=== PATIENT | male | born 1960 | race Caucasian/White ===

== ENCOUNTER 2022-11-20 18:20 | Emergency (ER) | payer MEDICAID ==
[2022-11-20 19:17] VITALS: RESP 18; TEMP 98
--- NOTE | 2022-11-20 23:13 | ERPHSYRPT ---
- History of Present Illness Time Seen by Provider: 11/20/22 23:07 Source: patient, family Exam Limitations: no limitations Patient Subjective Stated Complaint: C/O swelling to end of penis that started yesterday Triage Nursing Assessment: Patient ambulated back to ER without any difficulties. He is alert and oriented. Skin tone normal. Patient noted to be uncircumsized. Foreskin unable to be placed normally due to swelling to left side of penis shaft. Patient denies pain or itching. No rashes or "bites" noted at this time. Physician History: pt thinks he may have been bitten by a bug and is allergic to beestings. No shortness of breath or dif swallowing or dizziness. chest is clear without wheezes or stridor and swallowing OK in ER. This happend on penis and has swelling at foreskin but is retractable and has no pain and is able to urinate freely. Hx confirmed with family as independent sources discussed risks/benefits of steroid tx and benadrylk and pt wishes to proceed - pt also advised that reaction could progress quickly and he is aware and wishes this tx as outpt rather than further obs tx in hosp and has the [facility] make this choice. Timing/Duration: yesterday Activites at Onset: none Onset Location: other (penis) Pain Radiation: none Severity of Pain-Max: moderate Severity of Pain-Current: moderate Modifying Factors: Improves With: nothing Associated Symptoms: denies symptoms, No dysuria, No urinary frequency, No lower back pain Prior abdominal problems: none Sexual intercourse history: non-contributory Allergies/Adverse Reactions: Penicillins Allergy (Verified 11/20/22 18:52) Home Medications: Clopidogrel Bisulfate [Plavix] 1 tab PO DAILY 11/20/22 [History] Diltiazem HCl [Cardizem Cd] 1 tab PO DAILY 11/20/22 [History] Fluticasone Propion/Salmeterol [Fluticasone-Salmeterol 250-50] 1 puff PO BID 11/20/22 [History] Furosemide 20 mg [Lasix 20 mg] 1 tab PO DAILY 11/20/22 [History] Insulin Glargine [Lantus Insulin] 35 units SQ DAILY 11/20/22 [History] Isosorbide Mononitrate [Isosorbide Mononitrate ER] 1 tab PO BID 11/20/22 [History] Lisinopril 10 mg [Zestril 10 MG] 1 tab PO DAILY 11/20/22 [History] Magnesium Oxide 400 mg [Mag-Ox 400] 1 tab PO DAILY 11/20/22 [History] Metoprolol Succinate 50 mg [Toprol Xl 50 MG] 150 mg PO BID 11/20/22 [History] Rivaroxaban [Xarelto] 1 tab PO DAILY 11/20/22 [History] Tiotropium [place] [Spiriva Handihaler] 1 puff PO DAILY 11/20/22 [History] Hx Tetanus, Diphtheria Vaccination/Date Given: Yes Hx Influenza Vaccination/Date Given: No Hx Pneumococcal Vaccination/Date Given: No Immunizations Up to Date: Yes Travel Risk - International Travel Have you traveled outside of the country in past 3 weeks: No - Coronavirus Screening Are you exhibiting any of the following symptoms?: No Close contact with a COVID-19 positive Pt in past 14-21 Days: No - Vaccine Status Have you recieved a Covid-19 vaccination: Yes Pick Up: Dash - Past Medical History Pertinent Past Medical History: Yes Cardiac History: Coronary Artery Disease, High Cholesterol, Hypertension, Myocardial Infarction ([place]) Respiratory History: COPD Musculoskeletal History: Fractures GI Medical History: Hernia - Past Surgical History Past Surgical History: Yes Cardiac: Cardiac Catheterization, Cardiac Stent Gastrointestinal: Hernia Repair Musculoskeletal: Orthopedic Surgery Other Surgical History: stent in kidney - Social History Smoking Status: Former smoker Exposure to second hand smoke: No Drug Use: none Patient Lives Alone: No - Review of Systems Constitutional: No Fever, No Chills Eyes: No Symptoms Ears, Nose, & Throat: No Symptoms Respiratory: No Cough, No Dyspnea Cardiac: No Chest Pain, No Edema, No Syncope Abdominal/Gastrointestinal: No Abdominal Pain, No Nausea, No Vomiting, No Diarrhea Genitourinary Symptoms: Other (penile foreskin swelling), No Dysuria Musculoskeletal: No Back Pain, No Neck Pain Skin: No Rash Neurological: No Symptoms, No Dizziness, No Focal Weakness, No Sensory Changes Psychological: No Symptoms Endocrine: No Symptoms All Other Systems: Reviewed and Negative - Nursing Vital Signs Nursing Vital Signs: Initial Vital Signs Temperature 98 F 11/20/22 18:21 Pulse Rate 90 11/20/22 18:21 Respiratory Rate 18 11/20/22 18:21 Blood Pressure 143/71 11/20/22 18:21 O2 Sat by Pulse Oximetry 97 11/20/22 18:21 Pain Scale Pain Intensity 0 - Physical Exam General Appearance: no apparent distress, alert Eye Exam: PERRL/EOMI Ears, Nose, Throat Exam: pharynx normal, moist mucous membranes Neck Exam: normal inspection, supple Respiratory Exam: normal breath sounds, lungs clear Cardiovascular Exam: regular rate/rhythm, No edema Gastrointestinal/Abdomen Exam: soft, No tenderness Rectal Exam: deferred Male Genital Exam: normal genitalia (swollen foreskin - retractable without pain) Back Exam: normal inspection, No CVA tenderness Extremity Exam: normal inspection, normal range of motion, No pedal edema Neurologic Exam: alert, oriented x 3, cooperative, sensation nml, No motor deficits Skin Exam: normal color, warm, dry, No rash SpO2: 95 - Course Nursing assessment & vital signs reviewed: Yes - Progress Progress: improved, re-examined Counseled pt/family regarding: diagnosis, need for follow-up Medical Desision Making - Independent Historian Additional History obtained from: Family - Diagnostic Testing Diagnostic test were ordered, analyzed, and reviewed by me: No - Risk of complications The pt has a mod risk of morbidity or mortality based on: Need for prescription drug management - Departure Departure Disposition: Home Clinical Impression: localized allergic skin rxn penis Condition: Good Critical Care Time: No Referrals: GHAZAL OSMAN MD [Primary Care Provider] - Follow up/PCP as directed Additional Instructions: followup with your this week to confirm progress. return meantime if not improving or if any shortness of breath or difficulty swallowing or trouble urinating. you can take benadryl at home and also use ice Prescriptions: Methylprednisolone Packet [Medrol Dosepack] 4 mg PO UD #30 packet
[2022-11-20] MEDS ORDERED: DELTASONE 20 MG PO ONE (23:25)
[2022-11-20] MEDS ORDERED: DELTASONE 20 MG ONE (23:27)
[2022-11-20 23:43] VITALS: BP 122/74; PULSE 70; O2SAT 94
== END 2022-11-20 23:50 | disposition home or self-care (01) ==
LOC: ED 18:20
DX: T78.40XA Allergy, unspecified, initial encounter (principal); R22.9 Localized swelling, mass and lump, unspecified; E78.5 Hyperlipidemia, unspecified; I10 Essential (primary) hypertension; Z79.02 Long term (current) use of antithrombotics/antiplatelets; Z79.4 Long term (current) use of insulin; Z79.01 Long term (current) use of anticoagulants; Z79.899 Other long term (current) drug therapy; Z79.52 Long term (current) use of systemic steroids
CPT/HCPCS: 99283; A9270-GY

== ENCOUNTER 2024-01-20 11:34 | Emergency (ER) | payer MEDICARE ==
--- NOTE | 2024-01-20 12:10 | ERPHSYRPT ---
- History of Present Illness Time Seen by Provider: 01/20/24 12:06 Historian: patient, family Exam Limitations: no limitations Patient Subjective Stated Complaint: pt here for hes chronic abd pain, he has a artery occlusion.no vomiting or fever noted. Triage Nursing Assessment: pt alert, walked in with a cane, resp easy, skin w/d/p. abd soft, tender to touch, moves all ext well, has edema not lower legs he states is normal Physician History: Patient is 63-year-old male with significant past medical history of coronary artery disease for which patient has a 2 stent placed in 3 weeks ago also patient has a history of renal artery stenosis for which patient has also stent placed in, patient is also diabetic with last hemoglobin A1c was 10.2 and patient has recently found out about having a mesenteric artery occlusive disease for which patient required a stent placement but because of patient high hemoglobin A1c and uncontrolled diabetes it has been put on hold because of risk of renal failure. Patient states that he has a chronic abdominal pain due to mesenteric artery occlusive disease for last few months his pain is mainly in the right lower quadrant as well as left lower quadrant and periumbilical area. He denies any nausea vomiting diarrhea constipation blood in the stool or urine. He also denies any chest pain shortness of breath headache blurred vision back pain. Timing/Duration: week(s) Activities at Onset: none Quality: aching, sharpness, stabbing Abdominal Pain Onset Location: RLQ, LLQ, periumbilical Pain Radiation: no radiation Severity of Pain-Max: moderate Severity of Pain-Current: moderate Modifying Factors: Improves With: nothing Associated Symptoms: denies symptoms Previous symptoms: same symptoms as today Allergies/Adverse Reactions: Penicillins Allergy (Verified 01/20/24 11:49) Home Medications: Clopidogrel Bisulfate [Plavix] 1 tab PO DAILY 11/20/22 [History] Fluticasone Propion/Salmeterol [Fluticasone-Salmeterol 250-50] 1 puff PO BID 11/20/22 [History] Furosemide 20 mg [Lasix 20 mg] 1 tab PO DAILY 11/20/22 [History] Insulin Glargine [Lantus Insulin] 35 units SQ DAILY 11/20/22 [History] Isosorbide Mononitrate [Isosorbide Mononitrate ER] 1 tab PO BID 11/20/22 [History] Lisinopril 10 mg [Zestril 10 MG] 1 tab PO DAILY 11/20/22 [History] Magnesium Oxide 400 mg [Mag-Ox 400] 1 tab PO DAILY 11/20/22 [History] Metoprolol Succinate 50 mg [Toprol Xl 50 MG] 150 mg PO BID 11/20/22 [History] Rivaroxaban [Xarelto] 1 tab PO DAILY 11/20/22 [History] Tiotropium Pipestem [Spiriva Handihaler] 1 puff PO DAILY 11/20/22 [History] dilTIAZem HCL [Cardizem Cd] 1 tab PO DAILY 11/20/22 [History] Hx Tetanus, Diphtheria Vaccination/Date Given: Yes Hx Influenza Vaccination/Date Given: No Hx Pneumococcal Vaccination/Date Given: Yes (2022) Immunizations Up to Date: Yes Travel Risk - International Travel Have you traveled outside of the country in past 3 weeks: No - Emerging Infectious Disease Are you exhibiting symptoms associated with any current EIDs: No - Review of Systems Constitutional: No Fever, No Chills Eyes: No Symptoms Ears, Nose, & Throat: No Symptoms Respiratory: No Cough, No Dyspnea Cardiac: No Chest Pain, No Edema, No Syncope Abdominal/Gastrointestinal: Abdominal Pain, No Nausea, No Vomiting, No Diarrhea Genitourinary Symptoms: No Dysuria Musculoskeletal: No Back Pain, No Neck Pain Skin: No Rash Neurological: No Dizziness, No Focal Weakness, No Sensory Changes Psychological: No Symptoms Endocrine: No Symptoms All Other Systems: Reviewed and Negative - Past Medical History Pertinent Past Medical History: Yes Cardiac History: Coronary Artery Disease, High Cholesterol, Hypertension, Myocardial Infarction ([place]) Respiratory History: COPD Endocrine Medical History: Diabetes Type II Musculoskeletal History: Fractures GI Medical History: Hernia - Past Surgical History Past Surgical History: Yes Cardiac: Cardiac Catheterization, Cardiac Stent Gastrointestinal: Hernia Repair Musculoskeletal: Orthopedic Surgery Other Surgical History: stent in kidney - Social History Smoking Status: Former smoker Exposure to second hand smoke: No Drug Use: none Patient Lives Alone: No - Social Determinants of Health Will the patient participate in the screening: Yes Do you worry about a steady place to live?: No Do you have any problems with any of the following?: No known problems In the past 12 months,have you had to go without utilities?: No Transportation Issues: No Has anyone in your support network made you feel unsafe?: No Have you or anyone in your house had to go without enough: No - Nursing Vital Signs Nursing Vital Signs: Initial Vital Signs Respiratory Rate 18 01/20/24 12:00 Blood Pressure 126/61 01/20/24 12:00 Pain Scale Pain Intensity 8 - Physical Exam General Appearance: no apparent distress, alert Eye Exam: PERRL/EOMI, eyes nml inspection Ears, Nose, Throat Exam: normal ENT inspection, pharynx normal, moist mucous membranes Neck Exam: normal inspection, non-tender, supple, full range of motion Respiratory Exam: normal breath sounds, lungs clear, No respiratory distress Cardiovascular Exam: regular rate/rhythm, normal heart sounds Gastrointestinal/Abdomen Exam: soft, tenderness (RLQ, LLQ. Periumbilical), No mass Back Exam: normal inspection, normal range of motion, No CVA tenderness, No vertebral tenderness Extremity Exam: normal inspection, normal range of motion, pelvis stable Neurologic Exam: alert, oriented x 3, cooperative, normal mood/affect, nml cerebellar function, sensation nml, No motor deficits Skin Exam: normal color, warm, dry - Course Nursing assessment & vital signs reviewed: Yes Ordered Tests: Medication Summary Discontinued Medications Generic Name Dose Route Start Last Admin Trade Name Walter PRN Reason Stop Dose Admin Fentanyl Citrate 50 mcg 01/20/24 12:06 01/20/24 12:23 Fentanyl Citrate 100 Mcg/2 Ml* Vial IM 01/20/24 12:07 50 mcg STAT ONE Administration Fentanyl Citrate Confirm 01/20/24 12:22 Fentanyl Citrate 100 Mcg/2 Ml* Vial Administered 01/20/24 12:23 Dose 100 mcg .ROUTE .Perficient-MED ONE - Progress Progress: improved, pain not gone completely Progress Note: 01/20/24 12:53 Patient has underwent extensive testing including CT abdomen and pelvis coronary angiogram renal angiogram for the workup of his abdominal pain which is chronic. At this point of time we are waiting for the all the test results which has been done in last 6 months from [facility]. According to that we will decide further if further testing is necessary for his chronic abdominal pain. 01/20/24 13:11 Patient's record from [facility] is reviewed patient has extensive peripheral vascular disease as well as extensive coronary artery disease with diabetes and superior mesenteric artery stenosis which is the reason for his chronic abdominal pain and for which patient is awaiting stent placement in the superior mesenteric artery. Due to patient uncontrolled diabetes and recent multiple exposure of intravenous dye and diabetes related disease with kidney patient is undergoing extensive and aggressive treatment to control his diabetes. I discussed with the patient about his problem and patient and his they both understand. Pain medication has been helping him I will send him home with some of the pain medication but it has a major side effects of constipation so they are advised to take some stool softener with this medicine. He is also advised to follow-up with his campaign coordinator and primary care physician in next 2 to 3 days. Counseled pt/family regarding: diagnosis, need for follow-up Medical Desision Making - Independent Historian Additional History obtained from: Spouse - Departure Departure Disposition: Home Clinical Impression: Superior mesenteric artery stenosis, Severe peripheral arterial disease, Chronic intestinal ischemic syndrome Abdominal pain Qualifiers: Abdominal location: lower abdomen, unspecified Qualified Code(s): R10.30 - Lower abdominal pain, unspecified Type 2 diabetes mellitus Qualifiers: Diabetes mellitus mcfp insulin use: with mcfp use Diabetes mellitus complication status: with circulatory complication Diabetes mellitus complication detail: with other circulatory complications Qualified Code(s): E11 .59 - Type 2 diabetes mellitus with other circulatory complications; Z79.4 - detention (current) use of insulin Condition: Stable Critical Care Time: No Referrals: GHAZAL OSMAN MD [Primary Care Provider] - Follow up/PCP as directed Instructions: Ischemic Bowel Disease ([place]) Additional Instructions: Discharge/Care Plan JIGNESH DANIELSON was seen on 01/20/24 in the Emergency Room. The patient was counseled regarding Diagnosis,Lab results, Imaging studies, need for follow up and when to return to the Emergency Room. Prescriptions given: Discharge Note I have spoken with the patient and/or caregivers. I have explained the patient's condition, diagnosis and treatment plan based on the information available to me at this time. I have answered the patient's and/or caregiver's questions and addressed any concerns. The patient and/or caregivers have as good understanding of the patient's diagnosis, condition and treatment plan as can be expected at this point. The vital signs have been stable. The patient's condition is stable and appropriate for discharge from the emergency department. The patient will pursue further outpatient evaluation with the primary care physician or other designated or consulting physician as outlined in the discharge instructions. The patient and/or caregivers are agreeable to this plan of care and follow-up instructions have been explained in detail. The patient and/or caregivers have received these instruction. The patient/and or caregivers are aware that any significant change in condition or worsening of symptoms should prompt an immediate return to this or the closest emergency department or call 911. JIGNESH DANIELSON was seen on 01/20/24 n the Emergency Room. At that time you were treated for an emergent condition, during your visit Laboratory, Radiology and/or other procedures may have been ordered. It is very important that you follow-up with your Primary Care Physician GHAZAL OSMAN MD within the next 24-48 hours to review your Emergency Room visit and the final results of testing that was ordered. Some test results such as Urine Cultures, Blood Cultures, and other cultures if ordered will not be finalized for 24-48 hours. If you do not have a Primary Care Provider please call the medical records department at [phone] ext [phone] to obtain a copy of your results or you may sign into our patient portal to obtain these results by visiting us @ [email or web address] and completing the following steps: 1. Click on the Patient Portal link 2. Click the Patient Self Enrollment Link to complete the enrollment form and entering your 3. Once the enrollment form is completed you will receive an email with a temporary ID and password at the email address you provided. 4. Next choose a user name and password. Your user name must be at least 4 characters long and your password must be at least 4 characters long. 5. Choose a security question from the list and provide your answer to the question. If you already have signed into the Health Portal you may access your Health Care Information 03/10 by the following steps: 1. Login to our website @ [email or web address] 2. Enter your original user name and password. FAQS The [facility] Health Portal is an online tool that contains your Lab Results, Radiology Reports, Visit History, Discharge Instructions and Health Summary Lab and Radiology Results will not be available for 72 hours on the portal. The Portal is a secure site, passwords are encryted and URLs are re-written so they cannot be copied and pasted. You and authorized family members are the only ones who can access your Portal. Also there is a timeout feature that protects your information if you leave the Portal page open. If you have technical difficulty please use the Contact Us link on the page this will allow you to submit any questions you have regarding the Portal or you may contact the Medical Record Department at [phone] ext [phone]. Prescriptions: Hydrocodone/Acetaminophen [[place] 10-325 mg] 1 each PO QID #15 tablet MDD 4
[2024-01-20 12:11] VITALS: RESP 18; TEMP 97.2
[2024-01-20] MEDS ORDERED: SUBLIMAZE 100 MCG/2 ML ONE (12:22)
[2024-01-20] MEDS: SUBLIMAZE 100 MCG/2 ML IM ONE (12:23)
[2024-01-20 12:41] VITALS: PULSE 52
[2024-01-20 13:27] VITALS: BP 120/52; O2SAT 96
== END 2024-01-20 13:30 | disposition home or self-care (01) ==
LOC: ED 11:34
DX: K55.1 Chronic vascular disorders of intestine (principal); I73.9 Peripheral vascular disease, unspecified; R10.31 Right lower quadrant pain; R10.32 Left lower quadrant pain; R10.33 Periumbilical pain; E11.59 Type 2 diabetes mellitus with other circulatory complications; E78.5 Hyperlipidemia, unspecified; I10 Essential (primary) hypertension; Z79.4 Long term (current) use of insulin; Z79.02 Long term (current) use of antithrombotics/antiplatelets; Z79.01 Long term (current) use of anticoagulants; Z79.891 Long term (current) use of opiate analgesic; Z79.899 Other long term (current) drug therapy
CPT/HCPCS: 96372; 99283; J3010